=== PATIENT | female | born 1995 | race Caucasian/White ===

== ENCOUNTER 2021-10-31 13:30 | Emergency (ER) | payer OTHER ==
[2021-10-31 14:02] LABS: HEMOGLOBIN 14.4 gm/dl (12.3-15.3); RED BLOOD COUNT 4.64 M/UL (4.00-5.10); WHITE BLOOD COUNT 5.5 K/UL (4.5-11.0)
[2021-10-31 14:34] LABS: BUN/CREATININE RATIO 14 (0-10)
== END 2021-10-31 19:28 | disposition home or self-care (01) ==
LOC: ER1 13:30
DX: E86.0 Dehydration (principal); R10.811 Right upper quadrant abdominal tenderness
CPT/HCPCS: 70450; 80053; 81001; 83540; 83550; 83690; 84703; 85025; 99284